=== PATIENT | male | born 1940 | race Asian ===

== ENCOUNTER 2019-04-03 10:36 | Inpatient (IN) | payer BC ==
[~2019-04-03] VITALS: Ht 157.5 cm; Wt 56.7 kg
[2019-04-03] MEDS ORDERED: MEDROL DOSE PACK4 MG PO (11:06)
[2019-04-03 11:15] VITALS: BP 133/74; BMI 22.9
--- NOTE | 2019-04-03 12:43 | NUR ---
20G PIV TO RIGHT AC X 3 ATTEMPTS. PT TOLERTED WELL.
[2019-04-03 13:11] VITALS: BP 99/51
[2019-04-03 13:37] LABS: CREATININE - SERUM 0.8 mg/dL (0.6-1.3)
[2019-04-03 15:24] LABS: BASOPHILS 0.2 % (0-2); EOSINOPHILS 0.5 % (0-7); HEMATOCRIT 40.6 % (42.0-54.0); IMMATURE GRANULOCYTES 1.1 % (0-5); LYMPHOCYTES 9.7 % (15-50); MCH 29.4 pg (26.0-34.0); MCV 91.9 fL (80.0-100.0); MEAN PLATELET VOLUME 9.8 fL (7.4-10.4); MONOCYTES 11.8 % (2-11); NEUTROPHILS 76.7 % (40-80); PLATELET COUNT 240 10x3/uL (130-400); RBC 4.42 10x6/uL (4.20-6.10); RDW 12.2 % (11.5-14.5); WBC 12.8 10x3/uL (4.8-10.8)
[2019-04-03 16:29] VITALS: BP 117/62
--- NOTE | 2019-04-03 17:23 | HP ---
PATIENT: MALLORY SHEA MEDICAL RECORD: [id number] ACCOUNT: [id number] LOCATION:D.[facility] [id number] : 40 ADMISSION DATE: 04/03/19 PCP: BHAVIK GALDAMEZ MD HISTORY AND PHYSICAL EXAMINATION REASON FOR ADMISSION: Shortness of breath and fevers. HISTORY OF PRESENT ILLNESS: The patient is a 78-year-old Wallisian male with history of COPD. He has never been hospitalized. His daughter who is translating for him states that he for the last week has had increasing cough, congestion, low-grade fever and sputum production. She brought him to see our nurse practitioner today who noticed a sat of 88% in the office, but he was mildly tachypneic. Chest x-ray showed severe COPD changes with hyperinflation and right upper and middle lobe interstitial changes suggesting pneumonia. He was directly admitted to the hospital. Blood gas now on room air showed a pO2 of 48, pCO2 of 34, pH of 7.479 on room air. At this time, he is not struggling to breathe and he has been placed on supplemental oxygen. He has a remote history of 93-mbbb-sway history of smoking, but no exposure to asbestos. He has never been hospitalized. PAST MEDICAL HISTORY: COPD. PAST SURGICAL HISTORY: Negative. ALLERGIES: None known. HOME MEDICATIONS: Albuterol per handheld nebulizer q.i.d., Trelegy Ellipta 100 mcg per inhalation daily, Combivent Respimat solution per inhalation q.i.d. FAMILY HISTORY: Parents , had no significant cardiovascular or pulmonary disease. SOCIAL HISTORY: A 09-ujlv-dlhd history of smoking, quit several years ago. Lives in [place] with his daughter. REVIEW OF SYSTEMS: CONSTITUTIONAL: Recent fever off and on for the last week. Fair appetite. HEENT: No recent visual change or hearing difficulty. RESPIRATORY: Increasing shortness of breath, cough productive of sputum, yellow-green. No hemoptysis. CARDIAC: No chest pain, claudication or edema. GASTROINTESTINAL: No nausea, vomiting, change in stools or blood per rectum. GENITOURINARY: No nocturia. ENDOCRINE: Denies polyuria, polydipsia, heat or cold intolerance. NEUROLOGIC: No history of stroke, TIA, or vascular headaches. INTEGUMENT: No rash or itching or cyanosis. PSYCHIATRIC: Denies depressed mood. PHYSICAL EXAMINATION: VITAL SIGNS: Pulse 109, temperature is 98.6, respirations are 16, blood pressure 133/74 and O2 sat of 90% on room air. GENERAL: Alert and oriented. HEENT: Eyes are clear. NECK: Supple. CHEST: He has increased respiratory rate, and is using some of the accessory HISTORY AND PHYSICAL [id number] SHABBIR,TEJADA ALESSIO muscles. He has inspiratory crackles in the right upper lobe. He has decreased breath sounds in the bases. HEART: Tachycardic without murmur. ABDOMEN: Soft. Exam is deferred. EXTREMITIES: No CC&E. NEUROLOGICAL: Grossly intact. Gait is normal. No localizing motor deficits appreciated. INTEGUMENT: No rash appreciated. LABORATORY DATA: ABG on room air, pH 7.478, pCO2 34.8, pO2 is 48. H&H is 13 and 40 respectively. Glucose is 124. [place] [address] with left shift, H&H is 13 and 40.9, platelet count is 235, glucose is 124, nonfasting. Sodium is 130. Chest x-ray as above. EKG is pending. ASSESSMENT: 1. Exacerbation of chronic obstructive pulmonary disease with hypoxemia, respiratory failure. 2. Probable community-acquired pneumonia. PLAN: The patient admitted to the medical floor, supplemental oxygen, pulmonary toilet, pulmonary consult, repeat blood gas in 1 hour if no improvement. Consider moving to the ICU. Although, at this time the patient is not showing evidence of any distress. TRANSINT:[id number] Voice Confirmation ID: [id number] DOCUMENT ID: [id number] BHAVIK GALDAMEZ MD at 1723 CC: [id number] DICTATION DATE: 04/03/19 1255 ICICLE MACHINE OPERATOR: 04/03/19 1513 ADM IN [facility] [address] [place] [address]
[2019-04-03 17:31] LABS: APPEARANCE CLEAR (CLEAR); BILIRUBIN NEGATIVE (NEGATIVE); COLOR YELLOW (YELLOW); GLUCOSE NEGATIVE (NEGATIVE); KETONE NEGATIVE (NEGATIVE); NITRITE NEGATIVE (NEGATIVE); PROTEIN TRACE mg/dL (NEGATIVE); SPECIFIC GRAVITY 1.005 (1.005-1.020); UROBILINOGEN NORMAL (NORMAL)
[2019-04-03 17:33] LABS: BACTERIA FEW /hpf (NEGATIVE); EPITHELIAL CELLS 0-5 /hpf (0-5); RED CELLS - URINE OCC /hpf (0-5); WHITE CELLS - URINE 0-5 /hpf (NEGATIVE)
--- NOTE | 2019-04-03 19:15 | NUR ---
PATIENT ALERT AND ORIENTED. DAUGHTER AT BEDSIDE. GREENSKEEPER HEAD PHONE IN ROOM. DAUGHTER TRANSLATES. DENIES QUESTIONS OR CONCERNS. PATIENT WEARING 5L NC. CALL LIGHT IN REACH.
[2019-04-03 20:00] VITALS: BP 123/76
--- NOTE | 2019-04-03 20:00 | NUR ---
PATIENT POINTS TO IV. DAUGHTER STATES "IT HURTS HIM AND HES TRYING TO SLEEP. DOES HE HAVE TO HAVE IT." DISCONNECTED IV AT THIS TIME. PATIENT IS DRINKING WATER.
[2019-04-04] VITALS: BP 122/75
--- NOTE | 2019-04-04 01:46 | NUR ---
AMBULATED TO BATHROOM WITH NO ISSUES. RETURNED TO BED SAFELY.
[2019-04-04 04:00] VITALS: BP 117/66
--- NOTE | 2019-04-04 04:29 | NUR ---
I have reviewed this patient and I concur with the Shift Assessment completed by the Licensed Practical Nurse today this shift.
[2019-04-04 05:00] LABS: BASOPHILS 0 % (0-2); EOSINOPHILS 0 % (0-7); HEMATOCRIT 39.6 % (42.0-54.0); HEMOGLOBIN 12.9 g/dL (13.5-17.5); IMMATURE GRANULOCYTES 1.8 % (0-5); LYMPHOCYTES 7.1 % (15-50); MCH 29.9 pg (26.0-34.0); MCHC 32.6 g/dL (31.0-37.0); MCV 91.7 fL (80.0-100.0); MEAN PLATELET VOLUME 9.5 fL (7.4-10.4); MONOCYTES 2.8 % (2-11); NEUTROPHILS 88.3 % (40-80); PLATELET COUNT 282 10x3/uL (130-400); RBC 4.32 10x6/uL (4.20-6.10); RDW 12.2 % (11.5-14.5); WBC 12.6 10x3/uL (4.8-10.8)
[2019-04-04 05:23] LABS: CALC OSMOLALITY 277 mosm/kg (275-300); CARBON DIOXIDE 26.1 mmol/L (21.0-32.0); CHLORIDE - SERUM 101 mmol/L (98-107); CREATININE - SERUM 0.8 mg/dL (0.6-1.3); GLUCOSE 177 mg/dL (74-106); POTASSIUM - SERUM 3.8 mmol/L (3.5-5.1); SODIUM 137 mmol/L (136-145); UREA NITROGEN 12 mg/dL (7-18); eGFR NON AFRICAN AMERICAN > 90 mL/min (90-120)
--- NOTE | 2019-04-04 08:00 | NUR ---
PT RESTING IN BED. NO SIGNS OF DISTRESS. IV TO LEFT AC PATENT NO REDNESS OR TENDERNESS. ON TELEMETRY 91 SR. ON 5L NC. DENIES ANY FURTHER NEED AT THIS TIME. CALL LIGHT IN REACH. BED LOW POSITION. NO FAMILY AT BEDSIDE AT THIS TIME. INTER. PHONE AT BEDSIDE.
[2019-04-04 08:18] VITALS: BP 121/70
[2019-04-04 13:11] VITALS: BP 115/66
[2019-04-04 17:09] VITALS: BP 124/73
--- NOTE | 2019-04-04 18:45 | NUR ---
I have reviewed this patient and I concur with the Shift Assessment completed by the Licensed Practical Nurse today this shift.
[2019-04-04 20:00] VITALS: BP 121/68
[2019-04-05] VITALS: BP 110/70
[2019-04-05 04:00] VITALS: BP 122/77
[2019-04-05 05:51] LABS: HEMATOCRIT 37.3 % (42.0-54.0); HEMOGLOBIN 12.1 g/dL (13.5-17.5); MCHC 32.4 g/dL (31.0-37.0); MCV 92.6 fL (80.0-100.0); MEAN PLATELET VOLUME 9.5 fL (7.4-10.4); PLATELET COUNT 318 10x3/uL (130-400); RBC 4.03 10x6/uL (4.20-6.10); RDW 12.4 % (11.5-14.5); WBC 21.1 10x3/uL (4.8-10.8)
[2019-04-05 05:53] LABS: LYMPHOCYTES 5 % (15-50); MONOCYTES 7 % (2-11); NEUTROPHILS 85 % (40-80); PLATELET ESTIMATE NORMAL
[2019-04-05 05:58] LABS: CALC OSMOLALITY 282 mosm/kg (275-300); CALCIUM 8.5 mg/dL (8.5-10.1); CARBON DIOXIDE 24.6 mmol/L (21.0-32.0); CHLORIDE - SERUM 105 mmol/L (98-107); CREATININE - SERUM 0.8 mg/dL (0.6-1.3); GLUCOSE 165 mg/dL (74-106); POTASSIUM - SERUM 3.8 mmol/L (3.5-5.1); SODIUM 139 mmol/L (136-145); UREA NITROGEN 14 mg/dL (7-18); eGFR NON AFRICAN AMERICAN > 90 mL/min (90-120)
--- NOTE | 2019-04-05 07:10 | NUR ---
PT RESTING IN BED. NO SIGNS OF DISTRESS. IV TO LEFT AC PATENT NO REDNESS OR TENDERNESS. ON TELEMETRY 93 SR. ON 9L NC. DEINIES ANY FURTHER NEED AT THIS TIME. CALL LIGHT IN REACH. BED LOW POSITION. NO FAMILY AT BEDSIDE.
[2019-04-05 08:04] VITALS: BP 130/73
[2019-04-05 12:28] VITALS: BP 121/75
--- NOTE | 2019-04-05 14:52 | NUR ---
I have reviewed this patient and I concur with the Shift Assessment completed by the Licensed Practical Nurse today this shift.
[2019-04-05 16:57] VITALS: BP 117/72
[2019-04-05 20:00] VITALS: BP 127/72
[2019-04-06 04:00] VITALS: BP 135/76
[2019-04-06 05:18] LABS: BASOPHILS 0.1 % (0-2); EOSINOPHILS 0 % (0-7); HEMATOCRIT 35.9 % (42.0-54.0); HEMOGLOBIN 11.4 g/dL (13.5-17.5); IMMATURE GRANULOCYTES 2.1 % (0-5); LYMPHOCYTES 2.4 % (15-50); MCH 29.2 pg (26.0-34.0); MCHC 31.8 g/dL (31.0-37.0); MCV 92.1 fL (80.0-100.0); MEAN PLATELET VOLUME 9.1 fL (7.4-10.4); MONOCYTES 2.9 % (2-11); NEUTROPHILS 92.5 % (40-80); PLATELET COUNT 338 10x3/uL (130-400); RDW 12.7 % (11.5-14.5); WBC 17.2 10x3/uL (4.8-10.8)
[2019-04-06 05:41] LABS: CALC OSMOLALITY 284 mosm/kg (275-300); CALCIUM 8.4 mg/dL (8.5-10.1); CARBON DIOXIDE 27.3 mmol/L (21.0-32.0); CHLORIDE - SERUM 107 mmol/L (98-107); CREATININE - SERUM 0.7 mg/dL (0.6-1.3); GLUCOSE 153 mg/dL (74-106); POTASSIUM - SERUM 4.2 mmol/L (3.5-5.1); SODIUM 141 mmol/L (136-145); UREA NITROGEN 14 mg/dL (7-18); eGFR NON AFRICAN AMERICAN > 90 mL/min (90-120)
--- NOTE | 2019-04-06 07:10 | NUR ---
PT RESTING IN BED. NO SIGNS OF DISTRESS. IV TO LEFT AC PATENT NO REDNESS OR TENDERNESS. ON 5L NC. ON TELEMETRY 120 ST. DENIES ANY FURTHER NEED AT THIS TIME. CALL LIGHT IN REACH. BED LOW POSITION. NO FAMILY AT BEDSIDE AT THIS TIME
[2019-04-06 08:20] VITALS: BP 123/65; BP 138/75
[2019-04-06 12:03] VITALS: BP 121/67
--- NOTE | 2019-04-06 12:51 | NUR ---
I have reviewed this patient and I concur with the Shift Assessment completed by the Licensed Practical Nurse today this shift.
[2019-04-06 17:04] VITALS: BP 113/61
[2019-04-07] VITALS: BP 130/76
--- NOTE | 2019-04-07 02:27 | NUR ---
PT RESTING IN BED. EYES CLOSED. NO SIGNS OF DISTRESS. BREATHING EVEN AND UNLABORED. IV SITE LT AC DRESSING CLEAN DRY AND INTACT. NO SIGNS OF INFECTION. SKIN CLEAN DRY AND INTACT. TELE MONITOR ON 79 SINUS. LUNG SOUNDS CLEAR. BOWEL SOUNDS ACTIVE. NO LOWER LEG SWELLING PRESENT. WILL CONTINUE PLAN OF CARE. CALL LIGHT IN REACH. BED LOWERED AND LOCKED. BED RAILS UPX2.
[2019-04-07 04:00] VITALS: BP 127/73
--- NOTE | 2019-04-07 05:50 | NUR ---
I have reviewed this patient and I concur with the Shift Assessment completed by the Licensed Practical Nurse today this shift.
[2019-04-07 06:52] LABS: BASOPHILS 0.1 % (0-2); EOSINOPHILS 0 % (0-7); HEMATOCRIT 36.9 % (42.0-54.0); HEMOGLOBIN 11.8 g/dL (13.5-17.5); IMMATURE GRANULOCYTES 5.7 % (0-5); LYMPHOCYTES 3.3 % (15-50); MCH 29.3 pg (26.0-34.0); MCV 91.6 fL (80.0-100.0); MEAN PLATELET VOLUME 9.1 fL (7.4-10.4); MONOCYTES 4.1 % (2-11); NEUTROPHILS 86.8 % (40-80); PLATELET COUNT 354 10x3/uL (130-400); RBC 4.03 10x6/uL (4.20-6.10); RDW 12.7 % (11.5-14.5); WBC 14.3 10x3/uL (4.8-10.8)
--- NOTE | 2019-04-07 06:55 | NUR ---
ALERT AND ORIENTED, RESTING IN BED WITH EYES OPEN. UNABLE TO SPEAK [place]. NO C/O PAIN. NO S/S OF ACUTE DISTRESS NOTED. ON 2.5L O2, NC. OV TO LEFT AC, D5NS INFUSING @ 50ML/HR. SITE PATENT WITHOUT REDNESS OR SWELLING. ON TELEMETRY SR 100. DENIES ANY NEEDS AT THIS TIME. CALL LIGHT IN REACH. WILL CONTINUE TO MONITOR.
[2019-04-07 09:52] VITALS: BP 128/69
--- NOTE | 2019-04-07 11:55 | NUR ---
I have reviewed this patient and I concur with the Shift Assessment completed by the Licensed Practical Nurse today this shift.
--- NOTE | 2019-04-07 12:17 | NUR ---
IV RESITED TO LFA WITH 22 GUAGE AFTER ONE ATTEMPT.
[2019-04-07 12:24] VITALS: BP 133/88
[2019-04-07 13:44] VITALS: Ht 157.5 cm; Wt 56.7 kg
--- NOTE | 2019-04-07 15:24 | MORECARE ---
CASE MANAGEMENT DISCHARGE SUMMARY PATIENT: MALLORY SHEA ALESSIO UNIT: [id number] ADM DATE: 04/03/19 AGE: 78 : 40 SEX: M ROOM/BED: D.2216 AUTHOR: TOYIN CASTILLO PHYSICIAN: REFERRING PHYSICIAN: BHAVIK GALDAMEZ MD DATE OF SERVICE: 04/07/19 Discharge Plan Patient Name: MALLORY SHEA Facility: [facility]:[place] : 1940 Planned Disposition: Home or Self Care Anticipated Discharge Date: Discharge Date: Expected LOS: Initial Reviewer: [email or web address] Initial Review Date: 04/03/2019 Generated: 04/07/19 4:23 pm Patient Name: MALLORY SHEA Page 40953 at 1524 All edits/amendments must be made on the electronic document DICTATION DATE: 04/07/19 152 AIRCRAFT RIGGING AND CONTROLS MECHANIC: RICKY 04/07/19 152 RPT#: [id number] DC DATE: STATUS: ADM IN [facility] [address] [place] [address] END OF REPORT
--- NOTE | 2019-04-07 15:34 | MORECARE ---
CASE MANAGEMENT DISCHARGE SUMMARY PATIENT: MALLORY SHEA ALESSIO UNIT: [id number] ADM DATE: 04/03/19 AGE: 78 : 40 SEX: M ROOM/BED: D.2216 AUTHOR: TOYIN CASTILLO PHYSICIAN: REFERRING PHYSICIAN: BHAVIK GALDAMEZ MD DATE OF SERVICE: 04/07/19 Discharge Plan Patient Name: MALLORY SHEA Facility: [facility]:[place] : 1940 Planned Disposition: Home or Self Care Anticipated Discharge Date: Discharge Date: Expected LOS: Initial Reviewer: [email or web address] Initial Review Date: 04/03/2019 Generated: 04/07/19 4:33 pm Comments DCP- Discharge Planning Updated by [email or web address]: Rosanne Doty on 04/07/19 2:[address] Patient Name: MALLORY SHEA Admission Status: Elective Accout number: [id number] Admission Date: 04-03-2019 : 1940 Admission Diagnosis: Attending: BHAVIK GALDAMEZ Current LOS: 4 Anticipated DC Date: Planned Disposition: Home or Self Care Primary Insurance: [email or web address] EXCHANGE Discharge Planning Comments: CM spoke with patient's daughter to complete initial dc planning assessment. Patient lives at home with his daughter and . At discharge patient plans to return home and feels this is a safe discharge. CM discussed availability of home health, rehab services, and medical equipment. He will need nebulizer and possibility of O2. Berna Jez spoke with patient and MILADY with [facility] if they take his insurance. Will get a walk test prior to dc. Patient denied known discharge needs at this time. CM will continue to follow and will assist as needed with dc plans/needs. Laborer Cheesemaking: Rosanne Doty DCPIA - Discharge Planning Initial Assessment Updated by [email or web address]: Rosanne Doty on 04/07/19 3:28 pm * Is the patient Alert and Oriented? Yes * How many steps to enter\exit or inside your home? * PCP AZERI * Pharmacy [facility] [address] * Preadmission Environment Home with Family * ADLs Independent * Equipment None * List name and contact numbers for known caregivers / representatives who currently or will assist patient after discharge: MANUEL SHEA [phone] * Verbal permission to speak to the caregivers and representatives has been obtained from the patient. Yes * Community resources currently utilized None * Additional services required to return to the preadmission environment? Yes * Can the patient safely return to the preadmission environment? Yes * Has this patient been hospitalized within the prior 30 days at any hospital? No Last DP export: 04/07/19 2:24 Patient Name: MALLORY SHEA Page 10678 at 1534 All edits/amendments must be made on the electronic document DICTATION DATE: 04/07/191532 SPOTLIGHT OPERATOR: RICKY 04/07/191532 RPT#: [id number] DC DATE: STATUS: ADM IN [facility] [address] [place] [address] END OF REPORT
--- NOTE | 2019-04-07 15:58 | MORECARE ---
CASE MANAGEMENT DISCHARGE SUMMARY PATIENT: MALLORY SHEA ALESSIO UNIT: [id number] ADM DATE: 04/03/19 AGE: 78 : 40 SEX: M ROOM/BED: D.2216 AUTHOR: TOYIN CASTILLO PHYSICIAN: REFERRING PHYSICIAN: BHAVIK GALDAMEZ MD DATE OF SERVICE: 04/07/19 Discharge Plan Patient Name: MALLORY SHEA Facility: [facility]:[place] : 1940 Planned Disposition: Home or Self Care Anticipated Discharge Date: Discharge Date: Expected LOS: Initial Reviewer: [email or web address] Initial Review Date: 04/03/2019 Generated: 04/07/19 4:58 pm Comments DCP- Discharge Planning Updated by [email or web address]: Rosanne Doty on 04/07/19 2:[address] Patient Name: MALLORY SHEA Admission Status: Elective Accout number: [id number] Admission Date: 04-03-2019 : 1940 Admission Diagnosis: Attending: BHAVIK GALDAMEZ Current LOS: 4 Anticipated DC Date: Planned Disposition: Home or Self Care Primary Insurance: [employer] EXCHANGE Discharge Planning Comments: CM spoke with patient's daughter to complete initial dc planning assessment. Patient lives at home with his daughter and . At discharge patient plans to return home and feels this is a safe discharge. CM discussed availability of home health, rehab services, and medical equipment. He will need nebulizer and possibility of O2. Berna Jez spoke with patient and MILADY with [facility] if they take his insurance. Will get a walk test prior to dc. Patient denied known discharge needs at this time. CM will continue to follow and will assist as needed with dc plans/needs. Screwhead Polisher: Rosanne Doty DCPIA - Discharge Planning Initial Assessment Updated by [email or web address]: Rosanne Doty on 04/07/19 3:28 pm * Is the patient Alert and Oriented? Yes * How many steps to enter\exit or inside your home? * PCP SLOVENIAN * Pharmacy [facility] [address] * Preadmission Environment Home with Family * ADLs Independent * Equipment None * List name and contact numbers for known caregivers / representatives who currently or will assist patient after discharge: MANUEL SHEA [phone] * Verbal permission to speak to the caregivers and representatives has been obtained from the patient. Yes * Community resources currently utilized None * Additional services required to return to the preadmission environment? Yes * Can the patient safely return to the preadmission environment? Yes * Has this patient been hospitalized within the prior 30 days at any hospital? No External Providers External Provider: Jaylin Lux Contact Date: Service Request Date: Service Type: Resolution: Reviewer: Comments: Last DP export: 04/07/19 2:34 Patient Name: MALLORY SHEA Page 10986 at 1558 All edits/amendments must be made on the electronic document DICTATION DATE: 04/07/191557 UG DESIGNER: RICKY 04/07/191557 RPT#: [id number] DC DATE: STATUS: ADM IN [facility] [address] [place] [address] END OF REPORT
[2019-04-07 16:43] VITALS: BP 139/80
--- NOTE | 2019-04-07 17:50 | NUR ---
ALERT AND ORIENTED, SITTING UP IN BED EATING SUPPER. NO C/O PAIN. NO S/S OF ACUTE DISTRESS NOTED. DENIES ANY NEEDS AT THIS TIME. CALL LIGHT IN REACH. WILL CONTINUE TO MONITOR.
[2019-04-07 20:45] VITALS: BP 141/89
[2019-04-08] VITALS: BP 145/89
--- NOTE | 2019-04-08 01:41 | NUR ---
PT RESTING IN BED. EYES CLOSED. NO SIGNS OF DISTRESS. BREATHING EVEN AND UNLABORED. IV SITE LT FA DRESSING CLEAN DRY AND INTACT. NO SIGNS OF INFECTION. BOWEL SOUNDS ACTIVE. TELE MONITOR ON 83 NORMAL SINUS. LUNG SOUNDS DIMINISHED IN LOWER LOBES. NO LOWER LEG SWELLING PRESENT. WILL CONTINUE PLAN OF CARE. CALL LIGHT IN REACH. BED LOWERED AND LOCKED. BED RAILS UPX2.
[2019-04-08 04:00] VITALS: BP 149/48
--- NOTE | 2019-04-08 07:15 | NUR ---
ALERT AND ORIENTED, RESTING IN BED. NO C/O PAIN. NO S/S OF ACUTE DISTRESS NOTED. ON 1.5L O2, NC. RLL AND LLL DIMINISHED. IV TO LEFT FOREARM, D5NS INFUSING @ 50ML/HR. SITE PATENT WITHOUT REDNESS OR SWELLING. ON TELEMETRY 100 SR. DENIES ANY NEEDS AT THIS TIME. CALL LIGHT IN REACH. WILL CONTINUE TO MONITOR.
--- NOTE | 2019-04-08 07:29 | NUR ---
I have reviewed this patient and I concur with the Shift Assessment completed by the Licensed Practical Nurse today this shift.
[2019-04-08 09:48] VITALS: BP 109/72
--- NOTE | 2019-04-08 11:01 | NUR ---
I have reviewed this patient and I concur with the Shift Assessment completed by the Licensed Practical Nurse today this shift.
[2019-04-08] MEDS ORDERED: SINGULAIR10 MG PO (13:18)
[2019-04-08] MEDS ORDERED: MUCINEX DM ER1 EAC1 PO (13:18)
[2019-04-08] MEDS ORDERED: IPRAT-ALBUT 0.5-3 ML UPD (13:18)
[2019-04-08] MEDS ORDERED: LEVAQUIN750 MG PO (13:19)
[2019-04-08 13:23] VITALS: BP 136/79
--- NOTE | 2019-04-08 14:22 | NUR ---
O2 WALK TEST: ROOM AIR 90% EXCERTION 86% PLACED BACK ON 1.5L AT 95%
--- NOTE | 2019-04-08 15:30 | MORECARE ---
CASE MANAGEMENT DISCHARGE SUMMARY PATIENT: MALLORY SHEA ALESSIO UNIT: [id number] ADM DATE: 04/03/19 AGE: 78 : 40 SEX: M ROOM/BED: D.2216 AUTHOR: TOYIN CASTILLO PHYSICIAN: REFERRING PHYSICIAN: BHAVIK GALDAMEZ MD DATE OF SERVICE: 04/08/19 Discharge Plan Patient Name: MALLORY SHEA Facility: [facility]:[place] : 1940 Planned Disposition: Home or Self Care Anticipated Discharge Date: Discharge Date: Expected LOS: Initial Reviewer: [email or web address] Initial Review Date: 04/03/2019 Generated: 04/08/19 4:30 pm Comments DCP- Discharge Planning Updated by [email or web address]: Rosanne Doty on 04/08/19 2:[address] patient discharging home today, he did qualify for home O2, [facility]shmi here to delivery O2 along with nebulizer. Will set up home O2 when discharged. Daughter will be picking him up DCP- Discharge Planning Updated by [email or web address]: Rosanne Doty on 04/07/19 2:[address] Patient Name: MALLORY SHEA Admission Status: Elective Accout number: [id number] Admission Date: 04-03-2019 : 1940 Admission Diagnosis: Attending: BHAVIK GALDAMEZ Current LOS: 4 Anticipated DC Date: Planned Disposition: Home or Self Care Primary Insurance: [employer] EXCHANGE Discharge Planning Comments: CM spoke with patient's daughter to complete initial dc planning assessment. Patient lives at home with his daughter and . At discharge patient plans to return home and feels this is a safe discharge. CM discussed availability of home health, rehab services, and medical equipment. He will need nebulizer and possibility of O2. Berna Jez spoke with patient and MILADY with [facility] if they take his insurance. Will get a walk test prior to dc. Patient denied known discharge needs at this time. CM will continue to follow and will assist as needed with dc plans/needs. Valet Parker: Rosanne Doty DCPIA - Discharge Planning Initial Assessment Updated by [email or web address]: Rosanne Doty on 04/07/19 3:28 pm * Is the patient Alert and Oriented? Yes * How many steps to enter\exit or inside your home? * PCP TAJIK * Pharmacy [facility] [address] * Preadmission Environment Home with Family * ADLs Independent * Equipment None * List name and contact numbers for known caregivers / representatives who currently or will assist patient after discharge: MANUEL SHEA [phone] * Verbal permission to speak to the caregivers and representatives has been obtained from the patient. Yes * Community resources currently utilized None * Additional services required to return to the preadmission environment? Yes * Can the patient safely return to the preadmission environment? Yes * Has this patient been hospitalized within the prior 30 days at any hospital? No Coverage Notice Reviewer: [email or web address] Smita Doty Notice Issued Date-Time: 04/07/2019 15:15 Notice Type: Patient Choice Letter Notice Delivered To: Patient Relationship to Patient: Sterile Processing Manager Name: Delivery Method: HAND - Hand Delivered Marlene Days: Prior Verbal Notification: Recipient Understood Notice: Yes Recipient Signature: Yes Med Rec Note Co-signed by Attending: Coverage Notice Comment: Last DP export: 04/07/19 2:58 Patient Name: MALLORY SHEA Page 54036 at 1530 All edits/amendments must be made on the electronic document DICTATION DATE: 04/08/191529 MIXER OPERATOR VACUUM PAN SALT: RICKY 04/08/19 153 RPT#: [id number] DC DATE: STATUS: ADM IN [facility] [address] [place] [address] END OF REPORT
--- NOTE | 2019-04-08 20:30 | NUR ---
DAUGHTER HERE TO FLAGSETTER PT WHO HAS BEEN DISCHARGED, REVIEWED MEDICATIONS AND DISCHARGE ORDERS WITH DAUGHTER, RT HERE AND INSTRUCTED ON O2 TANK AND NEED FOR PT TO WEAR CONTINOUS O2, QUESTIONS ANSWERED, IV DC'C, DC'D HOME WITH DAUGHTER VIA W/C WITH O2 IN USE
--- NOTE | 2019-04-12 13:57 | MORECARE ---
CASE MANAGEMENT DISCHARGE SUMMARY PATIENT: MALLORY SHEA ALESSIO UNIT: [id number] ADM DATE: 04/03/19 AGE: 78 : 40 SEX: M ROOM/BED: D.2216 AUTHOR: TOYIN CASTILLO PHYSICIAN: REFERRING PHYSICIAN: BHAVIK GALDAMEZ MD DATE OF SERVICE: 04/12/19 Discharge Plan Patient Name: MALLORY SHEA Facility: [facility]:[place] : 1940 Planned Disposition: Home or Self Care Anticipated Discharge Date: Discharge Date: 04/08/2019 Expected LOS: Initial Reviewer: [email or web address] Initial Review Date: 04/03/2019 Generated: 04/12/19 2:56 pm Comments DCP- Discharge Planning Updated by [email or web address]: Rosanne Doty on 04/08/19 2:[address] patient discharging home today, he did qualify for home O2, Lakshmi here to delivery O2 along with nebulizer. Will set up home O2 when discharged. Daughter will be picking him up DCP- Discharge Planning Updated by [email or web address]: Rosanne Doty on 04/07/19 2:[address] Patient Name: MALLORY SHEA Admission Status: Elective Accout number: [id number] Admission Date: 04-03-2019 : 1940 Admission Diagnosis: Attending: BHAVIK GALDAMEZ Current LOS: 4 Anticipated DC Date: Planned Disposition: Home or Self Care Primary Insurance: [employer] EXCHANGE Discharge Planning Comments: CM spoke with patient's daughter to complete initial dc planning assessment. Patient lives at home with his daughter and . At discharge patient plans to return home and feels this is a safe discharge. CM discussed availability of home health, rehab services, and medical equipment. He will need nebulizer and possibility of O2. Berna Story spoke with patient and MILADY with [facility] if they take his insurance. Will get a walk test prior to dc. Patient denied known discharge needs at this time. CM will continue to follow and will assist as needed with dc plans/needs. Drapery Counselor: Rosanne Doty DCPIA - Discharge Planning Initial Assessment Updated by [email or web address]: Rosanne Doty on 04/07/19 3:28 pm * Is the patient Alert and Oriented? Yes * How many steps to enter\exit or inside your home? * PCP [place] * [facility] [address] * Preadmission Environment Home with Family * ADLs Independent * Equipment None * List name and contact numbers for known caregivers / representatives who currently or will assist patient after discharge: MANUEL SHEA [phone] * Verbal permission to speak to the caregivers and representatives has been obtained from the patient. Yes * Community resources currently utilized None * Additional services required to return to the preadmission environment? Yes * Can the patient safely return to the preadmission environment? Yes * Has this patient been hospitalized within the prior 30 days at any hospital? No Coverage Notice Reviewer: [email or web address] Smita Doty Notice Issued Date-Time: 04/07/2019 15:15 Notice Type: Patient Choice Letter Notice Delivered To: Patient Relationship to Patient: Healthcare Technician Name: Delivery Method: HAND - Hand Delivered Marlene Days: Prior Verbal Notification: Recipient Understood Notice: Yes Recipient Signature: Yes Med Rec Note Co-signed by Attending: Coverage Notice Comment: Last DP export: 04/08/19 2:30 Patient Name: MALLORY SHEA Page 90384 at 1357 All edits/amendments must be made on the electronic document DICTATION DATE: 04/12/191355 ASPHALT WORKER: RICKY 04/12/191355 RPT#: [id number] DC DATE:04/08/19 STATUS: DIS IN [facility] [address] [place] [address] END OF REPORT
== END 2019-04-08 20:36 | disposition home or self-care (01) | DRG 177 ==
LOC: D.MS 10:36
PROVIDERS: Internal Medicine Pulmonary Disease; ADMIT Family Medicine; ATTEND Family Medicine
DX: J15.6 Pneumonia due to other Gram-negative bacteria (principal); J96.01 Acute respiratory failure with hypoxia; J84.9 Interstitial pulmonary disease, unspecified; J15.4 Pneumonia due to other streptococci; J43.9 Emphysema, unspecified; D64.9 Anemia, unspecified; R00.0 Tachycardia, unspecified